=== PATIENT | male | born 1980 | race Caucasian/White ===

== ENCOUNTER → 2016-06-11 | Outpatient (CLI) | payer OTHER ==
--- NOTE | 2016-06-11 14:27 | DI ---
EXAM: SHOULDER RIGHT 2-3 VIEWS HISTORY: ITS.REASON: DIAGNOSTIC IMAGING LOCATION OF DICTATION[facility] TECHNIQUE: 3 views of the right shoulder were obtained. ENCOUNTER: Initial COMPARISON: No prior studies available for comparison. The osseous structures of the right shoulder are in normal anatomic alignment at the articular surfaces and appear of normal density. No acute fractures or focal destructive lesions are evident by plain film. The surrounding soft tissues are unremarkable. IMPRESSION: 1. No acute bony trauma is identified in the region of the right shoulder on this plain film evaluation. .
--- NOTE | 2016-06-11 14:29 | DI ---
EXAM: FOOT RIGHT 3 VIEWS HISTORY: ITS.REASON: DIAGNOSTIC IMAGING LOCATION OF DICTATION: [facility] TECHNIQUE: 3 views of the right foot were obtained. ENCOUNTER: Initial COMPARISON: No prior studies available for comparison. The osseous structures of the right foot are in normal anatomic alignment at the articular surfaces and appear of normal density. No acute fractures or focal destructive lesions are evident by plain film. There is a tiny dorsal calcaneal heel spur. There is mild pes cavus with a calcaneal pitch of 35 degrees. IMPRESSION: 1. No acute bony trauma the region of the right foot. 2. Mild pes cavus. 3. Tiny dorsal calcaneal heel spur. .
--- NOTE | 2016-06-11 14:32 | DI ---
EXAM: KNEE LEFT 2 VIEW HISTORY: ITS.REASON: DIAGNOSTIC IMAGING LOCATION OF DICTATION: [facility] TECHNIQUE: 2 views of the left knee were obtained. ENCOUNTER: Initial COMPARISON: No prior studies available for comparison. The osseous structures of the left knee are in normal anatomic alignment at the articular surfaces and appear of normal density. No acute fractures or focal destructive lesions are evident by plain film. Joint spaces are well-maintained. There is mild spurring of the tibial spines. There is no evidence of a suprapatellar bursa effusion. IMPRESSION: 1. There is no acute bony trauma the region of the left knee. 2. Early degenerative changes. .
--- NOTE | 2016-06-11 14:54 | DI ---
EXAM: SINUS 2 VIEW HISTORY: ITS.REASON: DIAGNOSTIC IMAGING LOCATION OF DICTATION: [facility] ENCOUNTER TIMES: Initial COMPARISON: No prior studies available for comparison. FINDINGS: There is moderate opacification of the left maxillary sinus. The remaining paranasal sinuses appear clear and well aerated without significant mucosal thickening, soft tissue nodularity or air-fluid levels. The osseous structures showed no acute fractures or bony destructive process. The nasal septum appears midline. The included portions of the skull are unremarkable. IMPRESSION: Moderate opacification is suggested in the region of the left maxillary sinus, there is no additional evidence of significant paranasal sinus disease. .
--- NOTE | 2016-06-11 14:57 | DI ---
EXAM: ANKLE LEFT 2 VIEW HISTORY: ITS.REASON: DIAGNOSTIC IMAGING LOCATION OF DICTATION: [facility] TECHNIQUE: 2 views of the left ankle were obtained. ENCOUNTER: Initial COMPARISON: No prior studies available for comparison. The osseous structures of the left ankle are of normal density maintain normal anatomic alignment at the articular surfaces. There is contour deformity of the lateral aspect of the distal tibia at the metadiaphyseal junction which appears posttraumatic in etiology. No acute fractures or focal destructive lesions are seen. The ankle mortise remains intact. A tiny dorsal calcaneal heel spur is visualized. There is pes cavus of the hindfoot. IMPRESSION: 1. No acute bony trauma is identified in the region of the left ankle. 2. Likely posttraumatic deformity of the distal tibia. 3. Tiny dorsal calcaneal heel spur. 4. Pes cavus. .
--- NOTE | 2016-06-11 15:00 | DI ---
EXAM: ANKLE RIGHT 2 VIEW HISTORY: ITS.REASON: DIAGNOSTIC IMAGING LOCATION OF DICTATION: [facility] TECHNIQUE: 2 views of the right ankle were obtained. ENCOUNTER: Initial COMPARISON: No prior studies available for comparison. The osseous structures of the right ankle are in normal anatomic alignment at the articular surfaces and appear of normal density. The ankle mortise is intact. No acute fractures or focal destructive lesions are evident by plain film. There is tiny dorsal calcaneal heel spur. There is pes cavus of the hindfoot. There are early degenerative changes seen at the talonavicular joint. IMPRESSION: 1. No acute bony trauma in the region of the right ankle. 2. Tiny dorsal calcaneal spur. 3. Pes cavus. 4. Early degenerative changes. .
--- NOTE | 2016-06-11 15:03 | DI ---
EXAM: KNEE RIGHT 2 VIEW HISTORY: ITS.REASON: DIAGNOSTIC IMAGING LOCATION OF DICTATION: [facility] TECHNIQUE: 2 views of the right knee were obtained. ENCOUNTER: Initial COMPARISON: No prior studies available for comparison. The osseous structures of the right knee are in normal anatomic alignment at the articular surfaces and appear of normal density. No acute fractures or focal destructive lesions are evident by plain film. Joint spaces appear well maintained. There is minimal spurring of the tibial spines. There is no obvious suprapatella bursae effusion. IMPRESSION: 1. No acute bony trauma in the region of the right knee. 2. Early degenerative spurring of the tibial spines. .
--- NOTE | 2016-06-11 15:06 | DI ---
EXAM: FOOT LEFT 3 VIEWS HISTORY: ITS.REASON: DIAGNOSTIC IMAGING LOCATION OF DICTATION: [facility] TECHNIQUE: 3 views of the left foot were obtained. ENCOUNTER: Initial COMPARISON: No prior studies available for comparison. The osseous structures of the left foot are in normal anatomic alignment at the articular surfaces and appear of normal density. No acute fractures or focal destructive lesions are evident by plain film. There is pes cavus the hindfoot with calcaneal pitch a cemented at 35 degrees. There is a tiny dorsal calcaneal insults spur. Minimal degenerative change is seen at the talonavicular joint. IMPRESSION: 1. No acute bony trauma in the region of the left foot. 2. Pes cavus. 3. Tiny dorsal calcaneal heel spur. 3. Minimal degenerative change. .
--- NOTE | 2016-06-11 15:08 | DI ---
EXAM: LUMBAR SPINE 2-3 VIEWS HISTORY: ITS.REASON: DIAGNOSTIC IMAGING LOCATION OF DICTATION: [facility] COMPARISON: No prior studies available for comparison. FINDINGS: The lumbar vertebral bodies are of normal density and appear to be in good alignment demonstrating no evidence of compression fracture or subluxation. The disk spaces are well maintained. The pedicles and posterior elements appear intact. Psoas muscle margins are clearly visualized. The lumbar lordosis is well maintained. IMPRESSION: 1. No plain film evidence of acute bony trauma in the lumbar spine region. 2. No significant degenerative disc disease is evident by plain film. 3. The lumbar lordosis is well maintained. .
--- NOTE | 2016-06-11 15:16 | DI ---
EXAM: THORACIC SPINE 2 VIEW HISTORY: ITS.REASON: DIAGNOSTIC IMAGING LOCATION OF DICTATION: [facility] COMPARISON: No prior studies available for comparison. AP and lateral views of the thoracic spine demonstrate good alignment of the vertebral bodies. There is no obvious acute compression fracture deformity or subluxation. There are degenerative disc changes in the mid thoracic spine with associated mild to moderate degenerative disc narrowing, endplate spurring and sclerosis that appears most prominent from T7-T8 through T9-T10. There is mild dorsal spine kyphoscoliosis. Pedicles and posterior elements appear to be intact. No paravertebral soft tissue swelling is identified. No obvious sclerotic or lytic bone lesions are seen. IMPRESSION: 1. No plain film evidence of acute compression fractures or traumatic malalignment in the thoracic spine region. 2. Mild to moderate degenerative disc changes in the mid thoracic spine. 3. Mild dorsal spine kyphoscoliosis. 4. If symptoms persist further evaluation with MRI of the thoracic spine may be helpful. .
== END ==
LOC: IMA 13:19
DX: Z02.9 Encounter for administrative examinations, unspecified (principal)